=== PATIENT | male | born 2000 | race Hispanic/Latino ===

== ENCOUNTER 2024-11-15 03:27 | Emergency (ER) | payer BC ==
[~2024-11-15] VITALS: Ht 180.3 cm; Wt 74.8 kg
[2024-11-15 03:32] VITALS: PULSE 63; RESP 16; TEMP 97.9
[2024-11-15] MEDS ORDERED: IOPAMIDOL 370 MG/ML 100 ML INFUS..BTL INJ ONE (05:08)
[2024-11-15] MEDS: SODIUM CHLORIDE 0.9% 1000ML 1,000 ML IV STA (05:42)
[2024-11-15 06:11] VITALS: BP 127/73; PULSE 63; RESP 15; TEMP 98; O2SAT 99
[2024-11-15] MEDS ORDERED: TYLENOL325 MG PO (06:11)
[2024-11-15] MEDS ORDERED: DEXAMETHASONE SOD PHOS INJ 4 MG/ML SDV IV ONE (06:15)
== END 2024-11-15 06:22 | disposition home or self-care (01) ==
LOC: FSED 03:33
DX: R07.1 Chest pain on breathing (principal); R94.31 Abnormal electrocardiogram [ECG] [EKG]
CPT/HCPCS: 71260; 80053; 82553; 84484; 85025; 85379; 93005; 99284; J7030; Q9967